=== PATIENT | male | born 1980 | race Caucasian/White ===

== ENCOUNTER 2017-08-23 11:58 | Day surgery (SDC) | payer SELFPAY | END 2017-08-23 12:00 | disposition home or self-care (01) | LOC: FSGY 11:58 | PROVIDERS: ATTEND Internal Medicine Gastroenterology | DX: R10.11 Right upper quadrant pain (principal); R11.0 Nausea; R14.0 Abdominal distension (gaseous); Z53.8 Procedure and treatment not carried out for other reasons ==